=== PATIENT | female | born 1965 | race American Indian/Alaskan Native ===

== ENCOUNTER 2017-08-27 13:16 | Emergency (ER) | payer MEDICAID ==
[2017-08-27 13:28] VITALS: BP 148/97
--- NOTE | 2017-08-27 16:24 | Emergency Department Report ---
ED Recheck HPI - General Chief Complaint: Pain General Stated Complaint: BREAST/BACK PAIN Time Seen by Provider: 08/27/17 15:29 Source: patient Mode of arrival: Ambulatory Limitations: No Limitations - History of Present Illness Initial Comments: 51-year-old female past medical history breast cancer status post mastectomies with breast implants/chest cloth bleaching range back tender is presents with complaint of acute on chronic chest wall/breast pain. Patient states that she was given a prescription for tramadol by her breast specialist/physician. States that she ran out a few days ago and is experiencing dull achy pain near her implant sites. Denies any fevers chills shortness of breath abdominal pain. Denies any palpitations or diaphoresis. Patient adamantly denies fevers or chills. Denies any purulent drainage. MD Complaint: medication refill request Onset/Timin -: days(s) Returns Today for: request for prescription Symptoms Since Prior Visit: no new symptoms Context: ran out of medication Associated Symptoms: none - Related Data Previous Rx's Medication Instructions Recorded Last Taken Type traMADol [Ultram 50 MG tab] 50 mg PO Q6HR PRN #15 tablet 08/27/17 Unknown Rx Allergies Allergy/AdvReac Type Severity Reaction Status Date / Time ketamine Allergy Anaphylaxis Verified 08/27/17 13:21 ED Review of Systems ROS: Stated complaint: BREAST/BACK PAIN Other details as noted in HPI Constitutional: denies: chills, fever Eyes: denies: eye pain, eye discharge, vision change ENT: denies: ear pain, throat pain Respiratory: denies: cough, shortness of breath, wheezing Cardiovascular: denies: chest pain, palpitations Endocrine: no symptoms reported Gastrointestinal: denies: abdominal pain, nausea, diarrhea Genitourinary: denies: urgency, dysuria, discharge Musculoskeletal: denies: back pain, joint swelling, arthralgia Skin: denies: rash, lesions Neurological: denies: headache, weakness, paresthesias Psychiatric: denies: anxiety, depression Hematological/Lymphatic: denies: easy bleeding, easy bruising Other: Bilateral mastectomies ED Past Medical Hx - Past Medical History Hx of Cancer: Yes (Breast) - Surgical History Past Surgical History?: Yes Additional Surgical History: Mastectomy - Social History Smoking Status: Never Smoker Substance Use Type: None - Medications Home Medications: Home Medications Medication Instructions Recorded Confirmed Last Taken Type traMADol [Ultram 50 MG tab] 50 mg PO Q6HR PRN #15 tablet 08/27/17 Unknown Rx ED Physical Exam - General Limitations: No Limitations General appearance: alert, in no apparent distress - Head Head exam: Present: atraumatic, normocephalic - Eye Eye exam: Present: normal appearance, PERRL, EOMI - ENT ENT exam: Present: mucous membranes moist - Neck Neck exam: Present: normal inspection - Respiratory Respiratory exam: Present: normal lung sounds bilaterally, other (patient has had chest cloth bleaching range back tender is placed in breast regions where she had mastectomies. No clinical signs of erythema purulent drainage or cellulitis. Patient states that it is not painful to palpation). Absent: respiratory distress - Cardiovascular Cardiovascular Exam: Present: regular rate, normal rhythm. Absent: systolic murmur, diastolic murmur, rubs, gallop - GI/Abdominal GI/Abdominal exam: Present: soft, normal bowel sounds - Extremities Exam Extremities exam: Present: normal inspection - Back Exam Back exam: Present: normal inspection - Neurological Exam Neurological exam: Present: alert, oriented X3 - Psychiatric Psychiatric exam: Present: normal affect, normal mood - Skin Skin exam: Present: warm, dry, intact, normal color. Absent: rash ED Course Vital Signs 08/27/17 13:22 Temperature 98.1 F Pulse Rate 84 Respiratory 14 Rate Blood Pressure 148/97 O2 Sat by Pulse 97 Oximetry ED Recheck MDM - Medical Decision Making A/P: Breast pain/chest wall pain from breast implants/chest cloth bleaching range back tender status post mastectomy 1-no clinical signs of infection on exam 2-will give patient a short prescription for tramadol. Patient states she ran out of tramadol 50 days ago. Will follow-up with her breast specialist within the next 1-2 weeks Critical care attestation.: If time is entered above; I have spent that time in minutes in the direct care of this critically ill patient, excluding procedure time. ED Disposition Clinical Impression: Pain from breast implant Qualifiers: Encounter type: initial encounter Qualified Code(s): T85.848A - Pain due to other internal prosthetic devices, implants and grafts, initial encounter Disposition: DC-01 TO HOME OR SELFCARE Is pt being admited?: No Does the pt Need Aspirin: No Condition: Stable Instructions: Tramadol (By mouth) Prescriptions: traMADol [Ultram 50 MG tab] 50 mg PO Q6HR PRN #15 tablet PRN Reason: Pain Referrals: [facility] [Outside] - 3-5 Days Time of Disposition: 16:19
== END 2017-08-27 16:38 | disposition home or self-care (01) ==
LOC: ED 13:16
DX: N64.4 Mastodynia (principal); T85.848A Pain due to other internal prosthetic devices, implants and grafts, initial encounter; Z85.3 Personal history of malignant neoplasm of breast; Z88.5 Allergy status to narcotic agent
CPT/HCPCS: 99282